=== PATIENT | male | born 1965 | race Hispanic/Latino ===

== ENCOUNTER 2019-06-25 10:00 | Observation (INO) | payer OTHER ==
[~2019-06-25] VITALS: Ht 177.8 cm; Wt 124.1 kg
[2019-06-25 08:59] LABS: BASOPHILS % (AUTO) 0.5 % (0.0-5.0); EOSINOPHILS % (AUTO) 1.5 % (0.0-8.0); LYMPHOCYTES % (AUTO) 21.4 % (21.0-51.0); MEAN CORPUSCULAR HEMOGLOBIN 31.3 pg (27.0-33.0); MEAN CORPUSCULAR HGB CONC 34.9 g/dL (32.0-36.0); MEAN CORPUSCULAR VOLUME 89.6 fL (79-99); MONOCYTES % (AUTO) 9.9 % (3.0-13.0); NEUTROPHILS % (AUTO) 66.2 % (40.0-77.0); PLATELET COUNT (AUTO) 260 K/uL (130-400); RED BLOOD CELL COUNT(AUTO) 5.02 MIL/uL (4.50-6.20); RED CELL DISTRIBUTION WIDTH 12.3 % (11.0-15.5)
[2019-06-25 09:01] LABS: APPEARANCE,URINE Clear (CLEAR); BILIRUBIN,URINE Negative (NEGATIVE); COLOR,URINE Yellow (YELLOW); GLUCOSE, URINE (UA) Negative (NEGATIVE); KETONES,URINE Negative (NEGATIVE); LEUKOCYTE ESTERASE ,URINE Negative (NEGATIVE); NITRATE,URINE Negative (NEGATIVE); OCCULT BLOOD,URINE Negative (NEGATIVE); PH,URINE 6.5 (5.0-8.0); PROTEIN,URINE Negative (NEGATIVE)
[2019-06-25 09:13] LABS: CREATININE 0.9 mg/dL (0.5-1.5); POTASSIUM 4.2 mmol/L (3.5-5.1)
[2019-06-25 09:14] LABS: INR 0.92 (0.85-1.15); PARTIAL THROMBOPLASTIN TIME 26.8 SEC (26.3-35.5)
[2019-06-25 13:54] VITALS: BP 130/79
[2019-06-25] MEDS ORDERED: CETI10TA57 PO (14:31)
[2019-06-25] MEDS ORDERED: GABA600T10 PO (14:31)
[2019-06-26] VITALS (24 sets, daily range): BP systolic 123–163; BP diastolic 73–97
[2019-06-26] MEDS ORDERED: LACTATED RINGERS 1000ML 1,000 ML IV ONE (06:52)
[2019-06-26] MEDS ORDERED: VANCOMYCIN HCL 1 GM VIAL ONE (07:01)
[2019-06-26] MEDS ORDERED: TRANEXAMIC ACID 1000MG/10ML ONE ×2 (07:11→09:45)
[2019-06-26] MEDS ORDERED: GLYCOPYRROLATE 1 MG/5 ML SYRINGE ONE (07:16)
[2019-06-26] MEDS ORDERED: FENTANYL CITRATE PF 50 MCG/1 ML 2ML VIAL ONE (07:16)
[2019-06-26] MEDS ORDERED: LIDOCAINE PF 2% 5ML ABBOJECT ONE ×2 (07:16→07:17)
[2019-06-26] MEDS ORDERED: DEXAMETHASONE SOD PHOSPHATE 10MG/ML 1ML VIAL ONE (07:16)
[2019-06-26] MEDS ORDERED: PROPOFOL 10 MG/ML 20ML VIAL IV ONE (07:16)
[2019-06-26] MEDS ORDERED: ONDANSETRON HCL 4 MG/2 ML VIAL ONE (07:16)
[2019-06-26] MEDS ORDERED: MIDAZOLAM HCL 1 MG/ML 2ML VIAL ONE (07:17)
[2019-06-26] MEDS ORDERED: NEOSTIGMINE 5MG/5ML SYR IV ONE (07:17)
[2019-06-26] MEDS ORDERED: SUCCINYLCHOLINE CHLORIDE 20 MG/ML 10 ML VIAL ONE (07:17)
[2019-06-26] MEDS ORDERED: ROCURONIUM 10MG/1ML SYR 10 MG/ML ML ONE (07:17)
[2019-06-26] MEDS ORDERED: CEFAZOLIN SODIUM 1 GM VIAL ONE (07:34)
--- NOTE | 2019-06-26 07:35 | NUR ---
PATIENT TAKEN INTO OR VIA BED BY BELEM ALEMAN
[2019-06-26] MEDS ORDERED: FENTANYL CITRATE PF 50 MCG/1 ML 5ML AMP IV ONE (08:04)
[2019-06-26] MEDS ORDERED: ROPIVACAINE 0.5% 5MG/ML 30ML IJ ONE (09:17)
[2019-06-26] MEDS ORDERED: FERROUS FUMARATE 324 MG TABLET PO PRN (09:45)
[2019-06-26] MEDS ORDERED: POTASSIUM CHLORIDE 10% ELIXIR 20 MEQ/15 ML UDCUP PO PRN (09:45)
[2019-06-26] MEDS ORDERED: POTASSIUM CHLORIDE 20 MEQ ERTAB PO PRN (09:45)
[2019-06-26] MEDS ORDERED: LIDOCAINE HCL-MPF 1% 2ML VIAL IV PRN (09:45)
[2019-06-26] MEDS ORDERED: POTASSIUM CHLORIDE 20MEQ/100ML 100 ML IV PRN (09:45)
[2019-06-26] MEDS ORDERED: ONDANSETRON HCL 4 MG/2 ML VIAL IVP PRN (09:45)
[2019-06-26] MEDS ORDERED: DiphenhydrAMINE HCL 50 MG/ML VIAL IVP PRN (09:45)
[2019-06-26] MEDS ORDERED: MEPERIDINE-PF 25 MG/ML SYG ONE ×2 (09:53→10:05)
[2019-06-26] MEDS: SODIUM CHLORIDE 0.9% 1000ML 1,000 ML IV SCH ×2 (10:49→18:54)
[2019-06-26] MEDS: KETOROLAC TROMETHAMINE 15MG/ML IV PRN ×2 (10:49→15:56)
--- NOTE | 2019-06-26 11:43 | NUR ---
DCP: HOME Sw met with pt who lives at home with Hortencia W[address]ster [id number] and their 2 daughters 12 and 19. Pt works at [employer] and is independent of all ADLS, uses CPAP, no HH services. PCP is Dr Mayen and he uses [facility]. Plan is home at [place] Addendum: 06/26/19 at 1146 by WILLIE FERRER Amended: Links added.
--- NOTE | 2019-06-26 11:52 | NUR ---
INITIAL POST OP ASSESSMENT AND REFERRAL FOR DME Met w patient at bedside, s/p by Dr. Rivera, note made of order for DC planning per CM by dr. briceno. Patient lives with spouse, no DME, no stairs at the home, has been advised he will be going to rehab at the [facility]. C all x [address] Rivera's office requesting clarification of dme [facility], pending call back
[2019-06-26] MEDS: HYDROCODONE/ACETAMINOPHEN 5/325 MG TAB PO PRN ×2 (12:27→20:05)
[2019-06-26] MEDS: CEFAZOLIN SODIUM 1 GM VIAL IVP SCH ×2 (14:29→22:29)
[2019-06-26] MEDS: CETIRIZINE HCL 5 MG TABLET PO SCH (20:03)
[2019-06-26] MEDS: GABAPENTIN 300 MG CAPSULE PO SCH (20:04)
[2019-06-26] MEDS: CELECOXIB 200 MG CAP PO SCH (20:04)
[2019-06-26] MEDS: ASPIRIN 81 MG EC TAB PO SCH (20:04)
[2019-06-27] MEDS: KETOROLAC TROMETHAMINE 15MG/ML IV PRN ×3 (00:52→15:07)
[2019-06-27 03:57] VITALS: BP 109/66
[2019-06-27 04:12] LABS: HEMATOCRIT 38.6 % (42-54); MEAN CORPUSCULAR HEMOGLOBIN 31.2 pg (27.0-33.0); MEAN CORPUSCULAR HGB CONC 34.7 g/dL (32.0-36.0); MEAN CORPUSCULAR VOLUME 89.8 fL (79-99); RED BLOOD CELL COUNT(AUTO) 4.3 MIL/uL (4.50-6.20); RED CELL DISTRIBUTION WIDTH 12.1 % (11.0-15.5); WHITE BLOOD COUNT (AUTO) 10.6 K/uL (4.8-10.8)
[2019-06-27 04:36] LABS: CREATININE 0.9 mg/dL (0.5-1.5); POTASSIUM 3.7 mmol/L (3.5-5.1)
[2019-06-27] MEDS: SODIUM CHLORIDE 0.9% 1000ML 1,000 ML IV SCH (05:37)
[2019-06-27] MEDS: HYDROCODONE/ACETAMINOPHEN 5/325 MG TAB PO PRN ×3 (07:53→19:51)
[2019-06-27 08:15] VITALS: BP 131/77
[2019-06-27] MEDS: CALCIUM CARBONATE 500 MG TABLET PO PRN ×2 (09:07→19:50)
[2019-06-27] MEDS: POLYETHYLENE GLYCOL 3350 17 GM POWD.PACK PO SCH (09:07)
[2019-06-27] MEDS: ASPIRIN 81 MG EC TAB PO SCH ×2 (09:07→19:49)
[2019-06-27] MEDS: CELECOXIB 200 MG CAP PO SCH ×2 (09:07→19:50)
--- NOTE | 2019-06-27 12:26 | NUR ---
ADVISED BY KATE THAT PATIENT WILL GET HIS WALKER TODAY FAMILY WILL [employer]PAR[employer] SALES REPRESENTATIVE AT [facility] Addendum: 06/27/19 at 1227 by STEF GARIBAY RN CM Amended: Links added.
[2019-06-27 12:31] VITALS: BP 118/73
[2019-06-27 17:02] VITALS: BP 131/77
[2019-06-27 19:43] VITALS: BP 117/68
[2019-06-27] MEDS: CETIRIZINE HCL 5 MG TABLET PO SCH (19:49)
[2019-06-27] MEDS: GABAPENTIN 300 MG CAPSULE PO SCH (19:49)
[2019-06-27 23:00] VITALS: BP 134/76
--- NOTE | 2019-06-28 | NUR ---
ROUNDS PATIENT RESTING IN BED WITH OU CLOSED. EASILY AROUSED. NO COMPLAINTS OF PAIN VOICED AT THIS TIME. VITALS STABLE. AFEBRILE. NO COMPLAINTS OF PAIN VOICED AT THIS TIME. RESP EVEN AND UNLABORED. NO SOB NOTED. CPAP ON AT THIS TIME. 21 [place] WELL APPROXIMATED AND LEFT OPEN TO AIR TO LEFT KNEE. UP WITH ASSIST. WBAT. NO SIGNS OF DISTRESS NOTED. CALL LIGHT WITHIN REACH. WILL CONTINUE TO BE OBSERVED. Addendum: 06/28/19 at 0756 by ERNIE BOJORQUEZ RN RN Amended: Links added.
[2019-06-28 03:37] VITALS: BP 144/75
[2019-06-28] MEDS: HYDROCODONE/ACETAMINOPHEN 5/325 MG TAB PO PRN (06:36)
[2019-06-28 07:30] VITALS: BP 141/81
[2019-06-28] MEDS: CELECOXIB 200 MG CAP PO SCH (08:31)
[2019-06-28] MEDS: ASPIRIN 81 MG EC TAB PO SCH (08:31)
[2019-06-28] MEDS: POLYETHYLENE GLYCOL 3350 17 GM POWD.PACK PO SCH (08:31)
--- NOTE | 2019-06-28 09:19 | NUR ---
INSTRUCTIONS DISCHARGE INSTRUCTIONS GIVEN TO PATIENT USING TEACH BACK. IV REMOVED WITH TIP INTACT. DIRECT PRESSURE APPLIED UNTIL BLEEDING CONTROLLED THEN SITE COVERED WITH GAUZE AND SECURED WITH TAPE. F/U APPOINTMENT HAS BEEN MADE. HAS SENT NEW PRESCRIPTIONS TO PATIENT'S PHARMACY AND THE MEDS HAVE BEEN PICKED UP BY HIS SPOUSE. NO QUESTIONS OR CONCERNS VOICED. PENDING RIDE HOME.
--- NOTE | 2019-06-28 11:17 | NUR ---
[facility] TO FO[facility] WITH [facility] Addendum: 06/28/19 at 1118 by STEF GARIBAY RN CM Amended: Links added.
[2019-06-29] MEDS ORDERED: BISACODYL 10 MG SUPP.RECT RC PRN (09:45)
== END 2019-06-28 09:24 | disposition home or self-care (01) ==
LOC: EDSTATUS 10:00 → 3DH 06-26 05:52
PROVIDERS: ADMIT Orthopaedic Surgery Sports Medicine; ATTEND Orthopaedic Surgery Sports Medicine
DX: M17.12 Unilateral primary osteoarthritis, left knee (principal)
CPT/HCPCS: 27447; 36415 ×2; 80048 ×2; 81003; 85025; 85027; 85610; 85730; 87641; 96374; 96375; 96376 ×2; 97039 ×4; 97116 ×2; 97161; 97530 ×3; A4215; A4221; A4222; A4223; A4600; A4649 ×2; A4663; A4930 ×2; A6223; C1776; G0378 ×45; G8978; G8979; G8980; G8981; G8982; G8983; J0330; J0690 ×3; J1100; J1885 ×5; J2001 ×2; J2175 ×2; J2250; J2405 ×2; J2704; J2710; J2795; J3010 ×2; J3370; J3490 ×3; J7030 ×2; J7120

== ENCOUNTER 2023-05-08 07:22 | Day surgery (SDC) | payer OTHER ==
[2023-05-04 08:58] LABS: BASOPHILS # (AUTO) 0.03 K/uL (0.00-0.20); BASOPHILS % (AUTO) 0.4 % (0.0-5.0); EOSINOPHILS # (AUTO) 0.06 K/uL (0.00-0.70); EOSINOPHILS % (AUTO) 0.9 % (0.0-8.0); HEMATOCRIT 46.5 % (42-54); IMMATURE GRANULOCYTE ABSOLUTE 0.04 K/uL (0-1); LYMPHOCYTES # (AUTO) 1.3 K/uL (1.0-4.8); LYMPHOCYTES % (AUTO) 19.5 % (21.0-51.0); MEAN CORPUSCULAR HEMOGLOBIN 31.9 pg (27.0-33.0); MEAN CORPUSCULAR HGB CONC 34.8 g/dL (32.0-36.0); MEAN CORPUSCULAR VOLUME 91.5 fL (79-99); MONOCYTES # (AUTO) 0.6 K/uL (0.1-1.0); MONOCYTES % (AUTO) 9.2 % (3.0-13.0); NEUTROPHILS # (AUTO) 4.8 K/uL (1.8-7.7); NEUTROPHILS % (AUTO) 69.4 % (40.0-77.0); PLATELET COUNT (AUTO) 260 K/uL (130-400); RED BLOOD CELL COUNT(AUTO) 5.08 MIL/uL (4.50-6.20); RED CELL DISTRIBUTION WIDTH 11.9 % (11.0-15.5); WHITE BLOOD COUNT (AUTO) 6.9 K/uL (4.8-10.8)
[2023-05-04 09:06] LABS: POTASSIUM 4.6 mmol/L (3.5-5.1)
[2023-05-04 09:18] VITALS: BP 152/92; PULSE 78; RESP 16
[~2023-05-08] VITALS: Ht 177.8 cm; Wt 125.4 kg
[2023-05-08] VITALS (17 sets, daily range): BP systolic 115–149; BP diastolic 67–80; PULSE 75–89; RESP 14–19
[~2023-05-08 07:22] MED LIST: ASPI-1443 PO; ATOR20TA65 PO; CETI10TA57 PO; METF-527 PO; MINERALS PO; MVI PO; OXYB5TAB20 PO; PANT40TA54 PO
[2023-05-08] MEDS: 0.9%NACL 1000ML 1,000 ML IV ONE (07:42)
[2023-05-08] MEDS: CEFAZOLIN SODIUM 2 GM VIAL ONE (07:42)
[2023-05-08] MEDS ORDERED: HYDROMORPHONE 1 MG INJ ONE (08:38)
[2023-05-08] MEDS ORDERED: FAMOTIDINE 20MG VIAL IV ONE (08:38)
[2023-05-08] MEDS ORDERED: LIDOCAINE PF 100MG/5ML (2%) SYRINGE 5ML ONE (08:41)
[2023-05-08] MEDS ORDERED: GLYCOPYRROLATE 0.2 MG/ML 5 ML VIAL ONE (08:41)
[2023-05-08] MEDS ORDERED: SUCCINYLCHOLINE CHLORIDE 20 MG/ML 10 ML VIAL ONE (08:41)
[2023-05-08] MEDS ORDERED: PROPOFOL 10 MG/ML 20ML VIAL IV ONE (08:41)
[2023-05-08] MEDS ORDERED: MIDAZOLAM HCL 1 MG/ML 2ML VIAL ONE (08:42)
[2023-05-08] MEDS ORDERED: ROCURONIUM BROMIDE 10MG/1ML 5ML VL ONE (08:42)
[2023-05-08] MEDS ORDERED: FENTANYL CITRATE PF 50 MCG/1 ML 5ML AMP IV ONE (08:42)
[2023-05-08] MEDS: BUPIVACAINE/PF 0.5% 30ML VIAL ONE (09:12)
[2023-05-08] MEDS ORDERED: NEOSTIGMINE METHYLSULFATE 1MG/ML IV ONE (09:29)
[2023-05-08] MEDS: ONDANSETRON 4MG INJ ONE (10:25)
== END 2023-05-08 11:35 | disposition home or self-care (01) ==
LOC: DAH 07:22
PROVIDERS: ATTEND Surgery
DX: K42.9 Umbilical hernia without obstruction or gangrene (principal); G47.30 Sleep apnea, unspecified; K21.9 Gastro-esophageal reflux disease without esophagitis; Z79.899 Other long term (current) drug therapy; Z79.01 Long term (current) use of anticoagulants; Z79.82 Long term (current) use of aspirin
CPT/HCPCS: 80048; 85025; 36415; 49591; 82948 ×2; 88302; A6260; A4663; A4452; J3490 ×3; J3010; J1170; J0330; J7030; J2001; J2250; J2704; J2405; J2710; J0665; J0690; A4930 ×2; A4215; A4223; A4222; A4221; A4600